=== PATIENT | male | born 1960 | race Caucasian/White ===

== ENCOUNTER 2018-03-29 00:51 | Day surgery (SDC) | payer BC, OTHER ==
[~2018-03-29] VITALS: Ht 195.6 cm; Wt 112.5 kg
[~2018-03-29 00:51] MED LIST: AML5 PO; ASPI-1267 PO; ATEN100T93 PO; AZIT500V14 PO; CEP500 PO; CLON-393 PO; GEMF600T92 PO; KET10 PO; LISI-368 PO; LOSA100T69 PO; NEBI20TA3 PO; PER PO
[2018-03-29 06:29] VITALS: BP 146/98
[2018-03-29] MEDS ORDERED: LIDOCAINE/SOD BICARB 8.4% SYR ID ONE (06:30)
[2018-03-29] MEDS ORDERED: NORMOSOL R SOLN(*) 1000 ML BAG 1,000 ML IV PRN (06:30)
[2018-03-29] MEDS ORDERED: PROPOFOL EMUL(*) 10MG/ML 20 ML 60 ML ONE (08:01)
[2018-03-29 08:05] VITALS: BP 82/67
[2018-03-29 08:15] VITALS: BP 106/78
--- NOTE | 2018-03-29 08:16 | Short(Outpt) Discharge Summary ---
Discharge Summary Reason for Hosp/Final Diag: (1) Chronic diarrhea Status: Chronic Hospital Course & Plan: Colonoscopy with biopsies and polypectomy x4 completed without problems. (2) Family history of colorectal cancer Departure Discharge to: Home, Self Care Discharge Instructions Home Meds Reported Medications Losartan Potassium (LOSARTAN POTASSIUM) 100 Mg Tablet, 100 MG PO QDAY 02/17/18 Gemfibrozil (GEMFIBROZIL) 600 Mg Tablet, 600 MG PO BID 02/17/18 Clonidine Hcl (Catapres) 0.2 Mg Tablet, 0.2 MG PO PRN, #14 02/27/12 Nebivolol Hcl (Bystolic) 20 Mg Tablet, 1 TAB PO DAILY 02/27/12 Aspirin (ADULT LOW DOSE ASPIRIN EC) 81 Mg Tablet., 81 MG PO DAILY, 0 Refills 10/31/11 Follow up Referrals: General Surgery - 04/12/18 @ Surgery, General with SUKI THOMAS MD You have a follow up appointment scheduled with Dr. Thomas on 04/12/18, at 1:30pm. Diet: Regular Activity: As Tolerated Special Instructions: Your colonoscopy was completed without problems and your prep was excellent (Good Job!!). I took biopsies throughout your colon but the only abnormality that I saw were 4 small polyps that I removed and sent to pathology. I will see you back in my office in 2 weeks and I'll go over all these results with you and we'll work on improving your diarrhea. SUKI THOMAS MD Mar 29, 2018 08:16
[2018-03-29 08:30] VITALS: BP 127/85
[2018-03-29 08:41] VITALS: BP 125/81
[2018-03-29 08:43] VITALS: BP 115/84
== END 2018-03-29 09:06 | disposition home or self-care (01) ==
LOC: OR 00:51
PROVIDERS: ATTEND Surgery
DX: D12.3 Benign neoplasm of transverse colon (principal); K62.1 Rectal polyp
CPT/HCPCS: 00811; 45385; 83516; 85651; 86140; 88305; J2704